=== PATIENT | male | born 1960 | race Caucasian/White ===

== ENCOUNTER 2024-02-07 06:46 | Day surgery (SDC) | payer BC, OTHER ==
[~2024-02-07 06:46] MED LIST: Sodium Chloride 0.9% 10 ML Syringe FLUSH PRN
[2024-02-07] MEDS ORDERED: Propofol 200 MG/20 ML SDV IV ONE (06:47)
[2024-02-07] MEDS ORDERED: Midazolam 1 MG/ML 2 ML SDV IV ONE (06:47)
[2024-02-07] MEDS ORDERED: fentaNYL 100 MCG/2 ML SDV IV ONE (06:47)
[2024-02-07] MEDS: Lactated Ringers 1,000 ML IV SCH (07:53)
[2024-02-07] MEDS: Simethicone Drops 40 MG/0.6 ML 30 ML Bottle ONE (08:09)
== END 2024-02-07 09:21 | disposition home or self-care (01) ==
LOC: FB.SDS 06:46
PROVIDERS: ATTEND Surgery
DX: Z12.11 Encounter for screening for malignant neoplasm of colon (principal); K62.89 Other specified diseases of anus and rectum; K63.89 Other specified diseases of intestine
CPT/HCPCS: 00811; 88305; A9270-GY; J2250; J2704; J3010; J7120